=== PATIENT | female | born 1960 | race Caucasian/White ===

== ENCOUNTER → 2021-06-12 | Day surgery (SDC) | payer OTHER ==
[~2021-06-12] VITALS: Ht 167.6 cm; Wt 73.9 kg
[~2021-06-12] MED LIST: ACETAMINOPHEN500 M1 PO; ASPIRIN325 MG PO; ELAVIL50 MG PO; LIPITOR20 MG PO; LOVAZA1 GM PO; MAG-OXIDE 400M400 MG PO; MOTRIN600 MG PO; PERCOCET 5-3251 EACH PO; PROBIOTIC1 EAC1 PO; ZOLOFT50 MG PO; [UNRECOGNIZED DRUG - OTHER] PO
== END | disposition home or self-care (01) ==
LOC: FAS 06:27
DX: D17.9 Benign lipomatous neoplasm, unspecified (principal); E78.00 Pure hypercholesterolemia, unspecified; F41.9 Anxiety disorder, unspecified; F32.A Depression, unspecified; E78.5 Hyperlipidemia, unspecified; Z79.899 Other long term (current) drug therapy; Z82.49 Family history of ischemic heart disease and other diseases of the circulatory system; Z78.9 Other specified health status
CPT/HCPCS: J2250; J2704; J3010; J7120